=== PATIENT | female | born 1930 | race Caucasian/White ===

== ENCOUNTER 2017-08-14 07:30 | Emergency (ER) | payer MEDICARE, OTHER ==
[~2017-08-14] VITALS: Ht 170.2 cm; Wt 69.9 kg
[~2017-08-14 07:30] MED LIST: ALPR0.5T PO; CRESTOR10 MG PO; IBUP200C6 PO; LOSA100T6 PO; MELO7.5T29 PO; METO50TA29 PO; TRIA1TAB2 PO
--- NOTE | 2017-08-14 08:35 | RAD ---
Chest, 2 views, 08/14/2017: History: Cough Comparison is made to a study from 06/07/2014. There is a moderate thoracolumbar scoliosis with moderate multilevel degenerative change. The heart size and pulmonary vascularity are within normal limits. There is calcific plaquing of the aorta. The right hemidiaphragm is mildly elevated. There appears to be minimal basilar scarring. No acute infiltrate is seen. There is no evidence of pleural fluid. IMPRESSION: No acute cardiopulmonary abnormality is detected.
[2017-08-14 08:49] LABS: INFLUENZA A PATIENT NEGATIVE (NEGATIVE); INFLUENZA B PATIENT NEGATIVE (NEGATIVE)
[2017-08-14] MEDS ORDERED: GUAI1TBM10 PO (08:52)
[2017-08-14] MEDS ORDERED: NAPR500T PO (08:52)
--- NOTE | 2017-08-14 08:53 | PHYS DOC ---
Past History Past Medical History: Anxiety, Arthritis, High Cholesterol, Hypertension, Other Past Surgical History: Hysterectomy Alcohol Use: None Drug Use: None Adult General Chief Complaint Chief Complaint: FLU SYMPTOM HPI HPI Patient is a pleasant 86-year-old female who was exposed to URI-like symptoms earlier this week with family members as they came in to town. Since Sunday she' s begun having a nonproductive cough with runny nose and subjective fevers and myalgias. She is taking [id number] Tylenol and throat lozenges to help her symptoms but they have just progressively worsened. She denies any chest pain, shortness of breath, abdominal pain, headache, focal neurologic deficits. Fevers have not been measured. Sick contacts at home had similar symptoms. She is worried she has flu. Her immunizations are up-to-date she is on no medications despite the fact she has been treated for hypertension hyperlipidemia past. Review of Systems Review of Systems Constitutional: She has suffered from subjective fevers and chills but nothing measured. Eyes: Denies change in visual acuity, redness, or eye pain [] HENT: He said some clear nasal congestion without sore throat [] Respiratory: Patient has had a nonproductive cough without shortness of breath[] Cardiovascular: No additional information not addressed in HPI [] GI: Denies abdominal pain, nausea, vomiting, bloody stools or diarrhea [] : Denies dysuria or hematuria [] Musculoskeletal: Denies back pain or joint pain [] Integument: Denies rash or skin lesions [] Neurologic: Denies headache, focal weakness or sensory changes [] Endocrine: Denies polyuria or polydipsia [] All other systems were reviewed and found to be within normal limits, except as documented in this note. Allergies Allergies Allergies Coded Allergies Type Severity Reaction Last Updated Verified hydrocodone Allergy Intermediate Rash 06/07/14 Yes lisinopril Allergy Intermediate Rash 06/07/14 No Physical Exam Physical Exam Vital signs recorded on the chart patient be hypertensive without hypoxia tachypnea. Constitutional: Well developed, well nourished, no acute distress, non-toxic appearance. [] HENT: Normocephalic, atraumatic, bilateral external ears normal, oropharynx slightly dry mucous membranes, no oral exudates, nose normal only clear exudates from the nose.. Iams are clear bilaterally [] Eyes: PERRLA, EOMI, conjunctiva normal, no discharge. [] Neck: Normal range of motion, no tenderness, supple, no stridor or cervical lymphadenopathy. [] Cardiovascular:Heart rate regular rhythm, no murmur [] Lungs & Thorax: Bilateral breath sounds clear to auscultation [] Skin: Warm, dry, no erythema, no rash Neurologic: Alert and oriented X 3, normal motor function, normal sensory function, no focal deficits noted. [] Psychologic: Affect normal, judgement normal, mood normal. [] EKG EKG [] Radiology/Procedures Radiology/Procedures [] [address] [place] [id number] IMAGING REPORT Signed PATIENT: Miladis BLAKE ACCOUNT: [id number] : 1930 LOCATION: ER AGE: 86 SEX: F EXAM STATUS: REG ER ORD. PHYSICIAN: MARILYN FIGUEROA MD REASON: cough PROCEDURE: CHEST PA & LATERAL Chest, 2 views, 08/14/2017: History: Cough Comparison is made to a study from 06/07/2014. There is a moderate thoracolumbar scoliosis with moderate multilevel degenerative change. The heart size and pulmonary vascularity are within normal limits. There is calcific plaquing of the aorta. The right hemidiaphragm is mildly elevated. There appears to be minimal basilar scarring. No acute infiltrate is seen. There is no evidence of pleural fluid. IMPRESSION: No acute cardiopulmonary abnormality is detected. DICTATED AND SIGNED BY: GERARDO MARTINEZ MD DATE: 08/14/17829 CC: TAYLOR FRANKLIN MD; MARILYN FIGUEROA MD ~ Course & Med Decision Making Course & Med Decision Making Pertinent Labs and Imaging studies reviewed. (See chart for details) []She presents with what I believe to be URI-like symptoms. Two-view chest x- ray PA and lateral views reviewed and looked at by me read by me demonstrates no acute cardiopulmonary infection, cardiomegaly, pleural effusion, pulmonary edema, pneumonia, or pericardial effusion. Rapid influenza swab is negative patient is resting comfortably not hypoxic not tachypnea no estrogen stress. Dragon Disclaimer Dragon Disclaimer This electronic medical record was generated, in whole or in part, using a voice recognition dictation system. Departure Departure: Impression: Primary Impression: Upper respiratory infection Disposition: 01 HOME, SELF-CARE Condition: STABLE Referrals: TAYLOR FRANKLIN MD (PCP) Patient Instructions: Upper Respiratory Infection, Adult Additional Instructions: discharge: I've spoken with the patient and/or caregivers. I've explained the patient's condition, diagnosis and treatment plan based on information available to me at this time. I've answered the patient's and/or caregivers questions and addressed any concerns. The patient and/or caregivers have a good understanding the patient's diagnosis, condition and treatment plan as can be expected at this point. Vital signs have been stabilized. The patient's condition is stable for discharge from the emergency department. The patient will pursue further outpatient evaluation with her primary care provider or other designated consulting physician as outlined in the discharge instructions. Patient and/or caregivers are agreeable to this plan of care and follow-up instructions have been explained in detail. The patient and/or caregivers have received these instructions in written format and expressed understanding of these discharge instructions. The patient and her caregivers are aware that if any significant change in condition or worsening of symptoms should prompt him to immediately return to this of the closest emergency department. If an emergent department is not readily available I would encourage him to call 911. Scripts Naproxen (NAPROSYN) 500 Mg Tablet 1 TAB PO BID, #20 TAB 1 Refill Prov: MARILYN FIGUEROA MD 08/14/17 Guaifenesin/Dextromethorphan (MUCINEX DM ER 1,200-60 MG TAB) 1 Each Tbmp.12hr 1 TAB PO BID, #20 TAB 1 Refill Prov: MARILYN FIGUEROA MD 08/14/17 MARILYN FIGUEROA MD Aug 14, 2017 08:53
[2017-08-14 09:09] VITALS: BP 124/70
== END 2017-08-14 09:10 | disposition home or self-care (01) ==
LOC: ER 07:30
DX: J06.9 Acute upper respiratory infection, unspecified (principal); E78.00 Pure hypercholesterolemia, unspecified; I10 Essential (primary) hypertension; F41.9 Anxiety disorder, unspecified; M19.90 Unspecified osteoarthritis, unspecified site; Z88.6 Allergy status to analgesic agent; Z88.8 Allergy status to other drugs, medicaments and biological substances
CPT/HCPCS: 71020; 87804; 99285-25

== ENCOUNTER 2019-02-28 09:31 | Emergency (ER) | payer MEDICARE, OTHER ==
[~2019-02-28] VITALS: Ht 170.2 cm; Wt 64.4 kg
[~2019-02-28 09:31] MED LIST changes: +GUAI1TBM10 PO; +IBUP-1390 PO; -IBUP200C6 PO; +LOSA100T14 PO; -LOSA100T6 PO; +NAPR-683 PO
[2019-02-28 09:46] VITALS: BP 131/81
[2019-02-28] MEDS ORDERED: MECL25TA3 PO (10:01)
[2019-02-28] MEDS ORDERED: ONDA4TAB7 PO (10:01)
[2019-02-28] MEDS ORDERED: HYOS0.1264 PO (10:01)
--- NOTE | 2019-02-28 10:02 | PHYS DOC ---
Past History Past Medical History: Depression, Hypertension Past Surgical History: Appendectomy Smoking: Non-smoker Alcohol Use: None Drug Use: None Adult General Chief Complaint Chief Complaint: NAUSEA/VOMITING/DIARRHEA HPI HPI Patient is a 88-year-old female presents with nausea vomiting and diarrhea that started yesterday. Patient has been oral intake tolerant this morning. No chest pain or difficulty breathing. No diaphoresis. No blood in the stool or emesis. No recent travel. No sick contacts. No fever. No significant abdominal pain.[] Review of Systems Review of Systems Constitutional: Denies fever or chills [] Eyes: Denies change in visual acuity, redness, or eye pain [] HENT: Denies nasal congestion or sore throat [] Respiratory: Denies cough or shortness of breath [] Cardiovascular: No chest pain or palpitations[] GI: See history of present illness[] : Denies dysuria or hematuria [] Musculoskeletal: Denies back pain or joint pain [] Integument: Denies rash or skin lesions [] Neurologic: Denies headache, focal weakness or sensory changes, long-standing dizziness with change in position without any acute changes [] Endocrine: Denies polyuria or polydipsia [] All other systems were reviewed and found to be within normal limits, except as documented in this note. Allergies Allergies Allergies Coded Allergies Type Severity Reaction Last Updated Verified hydrocodone Allergy Intermediate Rash 06/07/14 Yes lisinopril Allergy Intermediate Rash 06/07/14 No Physical Exam Physical Exam Constitutional: Well developed, well nourished, no acute distress, non-toxic appearance. [] HENT: Normocephalic, atraumatic, bilateral external ears normal, oropharynx moist, no oral exudates, nose normal. [] Eyes: PERRLA, EOMI, conjunctiva normal, no discharge. [] Neck: Normal range of motion, no tenderness, supple, no stridor. [] Cardiovascular:Heart rate regular rhythm, no murmur [] Lungs & Thorax: Bilateral breath sounds clear to auscultation [] Abdomen: Bowel sounds normal, soft, no tenderness, no masses, no pulsatile masses. [] Skin: Warm, dry, no erythema, no rash. [] Back: No tenderness, no CVA tenderness. [] Extremities: No tenderness, no cyanosis, no clubbing, ROM intact, no edema. [] Neurologic: Alert and oriented X 3, normal motor function, normal sensory function, no focal deficits noted. [] Psychologic: Affect normal, judgement normal, mood normal. [] Current Patient Data Vital Signs Vital Signs Date Time Temp Pulse Resp B/P (MAP) Pulse Ox O2 Delivery O2 Flow Rate FiO2 02/28/19 09:46 97.8 70 18 97 Room Air EKG EKG [] Radiology/Procedures Radiology/Procedures [] Course & Med Decision Making Course & Med Decision Making Pertinent Labs and Imaging studies reviewed. (See chart for details) Medical decision making: Patient is oral intake tolerant without blood in her stool or emesis. Will treat with symptomatic supportive care. Discussed this with the patient extensively, diet recommendations, and reasons to return. Patient voiced understanding. All questions were answered. She was discharged in improved condition.[] Dragon Disclaimer Dragon Disclaimer This electronic medical record was generated, in whole or in part, using a voice recognition dictation system. Departure Departure: Impression: Primary Impression: Nausea vomiting and diarrhea Disposition: 01 HOME, SELF-CARE Condition: IMPROVED Referrals: TAYLOR FRANKLIN MD (PCP) Follow-up in 2 days Patient Instructions: Diet for Diarrhea, Adult, Dizziness, Nausea and Vomiting Additional Instructions: Drink plenty of fluids, frequent small sips. No fatty foods, no milk, and no pepper for the next 48 hours. For the next 48 hours eat a diet rich in carbohydrates with foods such as bananas, rice, applesauce, and toast. Follow-up with your regular doctor in 2 days. Return to the ER if unable to tolerate liquids, blood in the emesis or stool, or any other concerns. Scripts Ondansetron Hcl (ZOFRAN) 4 Mg Tablet 1 TAB PO Q6HRS for nausea or vomiting, #20 TAB Prov: ARIK BENJAMIN DO 02/28/19 Meclizine Hcl (MECLIZINE HCL) 25 Mg Tablet 1 TAB PO PRN TID for vertigo, #30 TAB Prov: ARIK BENJAMIN DO 02/28/19 Hyoscyamine Sulfate (LEVSIN) 0.125 Mg Tablet 0.125 MG PO QID for abdominal pain/cramping, #30 TAB Prov: ARIK BENJAMIN DO 02/28/19 ARIK BENJAMIN DO Feb 28, 2019 10:02
[2019-03-01] MEDS ORDERED: SERT50TA PO (13:08)
[2019-03-01] MEDS ORDERED: HYDR12.58 PO (13:08)
== END 2019-02-28 10:09 | disposition home or self-care (01) ==
LOC: ER 09:31
DX: R11.2 Nausea with vomiting, unspecified (principal); R19.7 Diarrhea, unspecified; R42 Dizziness and giddiness; F32.9 Major depressive disorder, single episode, unspecified; I10 Essential (primary) hypertension; Z88.5 Allergy status to narcotic agent; Z88.8 Allergy status to other drugs, medicaments and biological substances
CPT/HCPCS: 99283

== ENCOUNTER 2019-03-01 09:04 | Inpatient (IN) | payer MEDICARE, OTHER ==
[~2019-03-01] VITALS: Ht 167.6 cm; Wt 64.9 kg
[~2019-03-01 09:04] MED LIST changes: +HYOS0.1264 PO; +MECL25TA3 PO; +ONDA4TAB7 PO
--- NOTE | 2019-03-01 09:27 | PHYS DOC ---
Past History Past Medical History: Depression, Hypertension Past Surgical History: Appendectomy Smoking: Non-smoker Alcohol Use: None Drug Use: None Adult General Chief Complaint Chief Complaint: NAUSEA/VOMITING/DIARRHEA HPI HPI Patient is a 88-year-old female presents complaining with nausea vomiting and diarrhea that started several days ago. She was seen in the emergency department, started on antibiotics, these do did not relieve her nausea. She denies any blood in the stool or emesis. She reports 2 stools today. No recent travel, no trauma, mild abdominal pain that is relieved by the emesis as well as diarrheal stools. It is crampy in nature, mild in intensity. Patient reports fee ling lightheaded, dizzy, and shaky. She denies any chest pain or palpitations. She denies any discomfort with exertion. Past surgical history is significant for an appendectomy.[] Review of Systems Review of Systems Constitutional: Denies fever or chills [] Eyes: Denies change in visual acuity, redness, or eye pain [] HENT: Denies nasal congestion or sore throat [] Respiratory: Denies cough or shortness of breath [] Cardiovascular: No chest pain or palpitations[] GI: See history of present illness[] : Denies dysuria or hematuria [] Musculoskeletal: Denies back pain or joint pain [] Integument: Denies rash or skin lesions [] Neurologic: Denies headache, focal weakness or sensory changes [] Endocrine: Denies polyuria or polydipsia [] All other systems were reviewed and found to be within normal limits, except as documented in this note. Allergies Allergies Allergies Coded Allergies Type Severity Reaction Last Updated Verified hydrocodone Allergy Intermediate Rash 06/07/14 Yes lisinopril Allergy Intermediate Rash 06/07/14 No Physical Exam Physical Exam Constitutional: Well developed, well nourished, no acute distress, non-toxic a ppearance. [] HENT: Normocephalic, atraumatic, bilateral external ears normal, oropharynx moist, no oral exudates, nose normal. [] Eyes: PERRLA, EOMI, conjunctiva normal, no discharge. [] Neck: Normal range of motion, no tenderness, supple, no stridor. [] Cardiovascular:Heart rate regular rhythm, no murmur [] Lungs & Thorax: Bilateral breath sounds clear to auscultation [] Abdomen: Bowel sounds normal, soft, no tenderness, able to sit up and lay back with any difficulty, no rebound, no guarding, no rigidity, no masses, no pulsatile masses. [] Skin: Warm, dry, no erythema, no rash. [] Back: No tenderness, no CVA tenderness. [] Extremities: No tenderness, no cyanosis, no clubbing, ROM intact, no edema. [] Neurologic: Alert and oriented X 3, normal motor function, normal sensory function, no focal deficits noted. [] Psychologic: Affect normal, judgement normal, mood normal. [] EKG EKG EKG shows a sinus rhythm at 59 bpm, left axis at -24, QTC of 430 ms, incomplete right bundle-branch block, no ST elevations. Interpreted by me at 0932[] Radiology/Procedures Radiology/Procedures EXAM: CT ABDOMEN/PELVIS WITHOUT CONTRAST. HISTORY: Nausea, vomiting, diarrhea. TECHNIQUE: Computed tomography of the abdomen and pelvis was performed without intravenous contrast. COMPARISON: 02/23/2015. FINDINGS: Lung windows through the visualized portions of the bases reveal mild atelectasis. There are dense calcifications of the aortic valve. The ascending aorta is ectatic at 4.6 cm. Coronary atherosclerotic calcifications are also noted. Bone windows reveal no suspicious lesions. The liver, spleen, adrenal glands and gallbladder are unremarkable. The pancreas is atrophic without focal lesions or ductal dilatation. The common duct is not dilated. There is a 3 mm calculus in the left renal interpolar region. No suspicious renal lesions are seen without contrast. There is no hydronephrosis or ureteral calculus. The uterus is surgically absent. Contrast has traversed the small bowel and colon without evidence of small bowel obstruction. The appendix is surgically absent. Mild wall thickening of the sigmoid colon may reflect luminal decompression or mild colitis. Sigmoid diverticulosis is moderate. IMPRESSION: 1. Findings suggesting diarrhea. Mild wall thickening of the sigmoid colon may reflect mild colitis or only luminal decompression. 2. Aortic valve calcifications. Correlate for aortic stenosis. 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 Ongoing follow-up is recommended. 3. 3 mm left renal calculus.[] Course & Med Decision Making Course & Med Decision Making Pertinent Labs and Imaging studies reviewed. (See chart for details) ED course: Patient arrived, was placed in bed, and tolerated exam well. She was able to tolerate oral contrast for CT. At the time of this dictation CT interpretation is still pending. It was noted that her sodium level had decreased from yesterday, she was given IV fluids. She reports being able to tolerate "plain water" and not electrolyte supplements nor any food. Consultation was made with the hospitalist service for admission. She was admitted in improved condition. Findings were discussed with patient and family who voiced understanding. All questions were answered. Medical decision making: Patient appears to be failing outpatient management with oral antibiotics. She is hyponatremic when compared to yesterday however her renal function has improved to normal levels. Due to this hyponatremia along with failing outpatient management, consultation was made with the hospitalist service for admission. There is no evidence of an acute coronary syndrome. Stool cultures are pending. On exam there was no indication of a surgical pathology however given her age CT scan was obtained which is still pending.[] Dragon Disclaimer Dragon Disclaimer This electronic medical record was generated, in whole or in part, using a voice recognition dictation system. Departure Departure: Impression: Primary Impression: Nausea, vomiting, and diarrhea Additional Impressions: Hyponatremia Failure of outpatient treatment Disposition: ADMITTED INPATIENT Admitting Physician: Kashif Greco Condition: IMPROVED Referrals: UGO ESQUIVEL (PCP) Problem Qualifiers ARIK BENJAMIN DO Mar 01, 2019 09:27
[2019-03-01] MEDS ORDERED: METOCLOPRAMIDE HCL 10 MG/2 ML VIAL. IM ONE (09:30)
[2019-03-01] MEDS ORDERED: IOHEXOL 240 MG/ML 50ML VIAL. ONE (09:30)
[2019-03-01] MEDS ORDERED: HYOSCYAMINE 0.125 MG TAB.RAPDIS PO ONE (09:30)
[2019-03-01] MEDS ORDERED: IV NORMAL SALINE 500ML 500 ML IV ONE (09:30)
[2019-03-01] MEDS ORDERED: IOHEXOL 240 MG/ML 50ML VIAL. PO ONE (10:00)
[2019-03-01 10:24] LABS: ALBUMIN 3.9 g/dL (3.4-5.0); ALBUMIN/GLOBULIN RATIO 1.4 (1.0-1.7); CALCIUM 8.8 mg/dL (8.5-10.1); CREATININE 0.9 mg/dL (0.6-1.0); POTASSIUM 3.7 mmol/L (3.5-5.1); TOTAL BILIRUBIN 1.3 mg/dL (0.2-1.0); TOTAL PROTEIN 6.6 g/dL (6.4-8.2)
[2019-03-01 10:40] LABS: BASO % 0 % (0-3); EOS % 0 % (0-3); HEMATOCRIT 41.1 % (36.0-47.0); HEMOGLOBIN 14.2 g/dL (12.0-15.5); LYMPH # 2.1 x10^3/uL (1.0-4.8); LYMPH % 19 % (24-48); MEAN CORPUSCULAR HEMOGLOBIN 31 pg (25-35); MEAN CORPUSCULAR HGB CONC 35 g/dL (31-37); MEAN CORPUSCULAR VOLUME 89 fL (79-100); MONO % 9 % (0-9); NEUT # 7.8 x10^3uL (1.8-7.7); NEUT % 71 % (31-73); PLATELET COUNT 271 x10^3/uL (140-400); RED BLOOD COUNT 4.64 x10^6/uL (3.50-5.40); RED CELL DISTRIBUTION WIDTH 15.3 % (11.5-14.5); WHITE BLOOD COUNT 11.1 x10^3/uL (4.0-11.0)
--- NOTE | 2019-03-01 10:41 | EKG ---
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
[2019-03-01] MEDS ORDERED: IV NORMAL SALINE 1,000ML 1,000 ML IV SCH (11:32)
[2019-03-01] MEDS ORDERED: ACETAMINOPHEN 325 MG TABLET PO ONE (11:35)
[2019-03-01 11:45] LABS: % ATYL 1 % (0-0); % BANDS 1 % (0-9); % LYMPHS 13 % (24-48); % MONOS 3 % (0-10); % SEGS 82 % (35-66)
[2019-03-01] MEDS ORDERED: ONDANSETRON PF 4 MG/2 ML VIAL. IV PRN (11:45)
[2019-03-01] MEDS ORDERED: ACETAMINOPHEN 325 MG TABLET PO PRN (11:45)
[2019-03-01 11:46] LABS: PLT ESTIMATE ADEQUATE (ADEQUATE)
--- NOTE | 2019-03-01 11:59 | RAD ---
EXAM: CT ABDOMEN/PELVIS WITHOUT CONTRAST. HISTORY: Nausea, vomiting, diarrhea. TECHNIQUE: Computed tomography of the abdomen and pelvis was performed without intravenous contrast. COMPARISON: 02/23/2015. FINDINGS: Lung windows through the visualized portions of the bases reveal mild atelectasis. There are dense calcifications of the aortic valve. The ascending aorta is ectatic at 4.6 cm. Coronary atherosclerotic calcifications are also noted. Bone windows reveal no suspicious lesions. The liver, spleen, adrenal glands and gallbladder are unremarkable. The pancreas is atrophic without focal lesions or ductal dilatation. The common duct is not dilated. There is a 3 mm calculus in the left renal interpolar region. No suspicious renal lesions are seen without contrast. There is no hydronephrosis or ureteral calculus. The uterus is surgically absent. Contrast has traversed the small bowel and colon without evidence of small bowel obstruction. The appendix is surgically absent. Mild wall thickening of the sigmoid colon may reflect luminal decompression or mild colitis. Sigmoid diverticulosis is moderate. IMPRESSION: 1. Findings suggesting diarrhea. Mild wall thickening of the sigmoid colon may reflect mild colitis or only luminal decompression. 2. Aortic valve calcifications. Correlate for aortic stenosis. 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 Ongoing follow-up is recommended. 3. 3 mm left renal calculus. *One or more of the following individualized dose reduction techniques were utilized for this examination: 1. Automated exposure control. 2. Adjustment of the mA and/or kV according to patient size. 3. Use of iterative reconstruction technique. Electronically signed by: Candido Marin MD (03/01/2019 11:56 AM) [facility]
[2019-03-01 12:41] VITALS: BP 162/70
[2019-03-01] MEDS ORDERED: HYDR12.58 PO (13:08)
[2019-03-01] MEDS ORDERED: SERT50TA PO (13:08)
[2019-03-01] MEDS ORDERED: POTASSIUM CL 20MEQ IN 0.9%NACL 1,000 ML IV SCH (13:30)
[2019-03-01] MEDS: POTASSIUM CL 20MEQ IN 0.9%NACL 1,000 ML IV SCH ×2 (13:30→21:15)
[2019-03-01 15:01] VITALS: BP 164/77
--- NOTE | 2019-03-01 15:41 | HP ---
ADMIT DATE: 03/01/2019 ADMISSION HISTORY AND PHYSICAL CHIEF COMPLAINT: Diarrhea and weakness. HISTORY OF PRESENT ILLNESS: The patient is very alert, active 88-year-old female, admitted through the Emergency Department with 2-day history of nausea, vomiting, and diarrhea. The vomiting has somewhat subsided. She was seen in the Emergency Department on Sunday the , started on some antibiotics and antiemetics. She had 2 loose stools today. No recent travel. She is still clinically quite weak and dehydrated. She was admitted then for further treatment and evaluation. There are no signs of obstruction. Her only previous surgical history of the abdomen is an appendectomy. PAST MEDICAL/SURGICAL HISTORY: Significant for depression, essential hypertension, previous appendectomy. SOCIAL HISTORY: She is a nonsmoker and nondrinker. ALLERGIES: SHE HAS ALLERGIES TO HYDROCODONE AND LISINOPRIL CAUSING RASHES. HOME MEDICATIONS REVIEW: She was taking Xanax along with recently started Zoloft and ____. FAMILY HISTORY: The patient is recently . Her significant other of many years just 4 months ago. She has had 5 children by her first marriage. Two of her sons have since preceded her in , one son of alcohol-related cirrhosis, the other by his own hand as a result of suicide. REVIEW OF SYSTEMS: Indicates that the symptoms are localized to just this week. She denied any recent travel. She denied any chest pain, palpitation, bloody stools, or hematemesis. All other systems reviewed and determined to be negative. PHYSICAL EXAMINATION: GENERAL: When I saw her, this is an alert female who was appropriate. VITAL SIGNS: Her initial blood pressure in the Emergency Department was 160/70, pulse was 64 and regular, and she was afebrile. HEENT: Head is without trauma. The pupils are reactive. Sclerae are anicteric. The oropharynx is clear. NECK: Supple. No bruits identified. LUNGS: Otherwise clear. CARDIOVASCULAR: Showed regular heart tones. No obvious gallops. Peripheral pulses are palpable and full. ABDOMEN: Soft, scaphoid; minimal guarding, no rebound tenderness. Bowel sounds are hypoactive. EXTREMITIES: Show no cyanosis or edema. NEUROLOGIC: Focally intact. Speech is fluent. No focal deficits. PERTINENT LABORATORY STUDIES: Her hemoglobin is 14.2 g/dL with a white count of 11,100. Her nonfasting blood sugar is 103. Electrolytes are within normal range. Laboratory studies were reviewed. She had a CT abdomen and pelvis. There is mild thickening of the sigmoid colon reflecting mild colitis, no evidence of masses or lesions. She had aortic valve calcification, ascending aortic ectasia. She also had a 3.3-mm left renal calculus, which is now asymptomatic. IMPRESSION: 1. This 88-year-old female has most likely a self-limiting gastroenteritis. 2. Dehydration, aggravated by hydrochlorothiazide. 3. Essential hypertension. 4. 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 PLAN: 1. Admit to the Inpatient Unit. 2. Clear liquid diet. 3. Gentle intravenous hydration. 4. Serial chemistries. 5. Continue Xanax and Zoloft. 6. We will advance her diet as tolerated. JHONY MOURA MD DR: BRITTANY/arianna JOB#: [id number] / [id number] ayaka Kruger Dr.
[2019-03-01 19:24] VITALS: BP 126/75
[2019-03-01] MEDS: ALPRAZolam 0.5 MG TABLET PO SCH (20:54)
[2019-03-01 23:45] VITALS: BP 131/76
[2019-03-02 05:36] VITALS: BP 155/86
[2019-03-02 06:24] LABS: BASO % 0 % (0-3); EOS # 0.1 x10^3/uL (0.0-0.7); EOS % 0 % (0-3); HEMATOCRIT 41.6 % (36.0-47.0); HEMOGLOBIN 14.6 g/dL (12.0-15.5); LYMPH # 2.4 x10^3/uL (1.0-4.8); LYMPH % 18 % (24-48); MEAN CORPUSCULAR HEMOGLOBIN 31 pg (25-35); MEAN CORPUSCULAR HGB CONC 35 g/dL (31-37); MEAN CORPUSCULAR VOLUME 88 fL (79-100); MONO # 1.4 x10^3/uL (0.0-1.1); MONO % 10 % (0-9); NEUT % 72 % (31-73); PLATELET COUNT 281 x10^3/uL (140-400); RED BLOOD COUNT 4.72 x10^6/uL (3.50-5.40); RED CELL DISTRIBUTION WIDTH 15.2 % (11.5-14.5); WHITE BLOOD COUNT 13.9 x10^3/uL (4.0-11.0)
[2019-03-02 06:26] LABS: CALCIUM 8.5 mg/dL (8.5-10.1); CREATININE 0.8 mg/dL (0.6-1.0); GFR 67.5; POTASSIUM 4.6 mmol/L (3.5-5.1)
--- NOTE | 2019-03-02 08:29 | PDOC ---
SUBJECTIVE: CC: Weakness and Diarrhea Diarrhea has subsided Says she is hungry, yet she has no appetite. OBJECTIVE: Problems: Problems Medical Problems: (1) Failure of outpatient treatment Status: Acute (2) Hyponatremia Status: Acute (3) Nausea, vomiting, and diarrhea Status: Acute Vital Signs/I&O: Vital Signs Date Time Temp Pulse Resp B/P (MAP) Pulse Ox O2 Delivery O2 Flow Rate FiO2 03/02/19 05:36 98.0 89 20 155/86 (109) 94 Room Air 03/01/19 12:41 96.0 I & O 03/01/19 03/01/19 03/02/19 14:59 22:59 06:59 Intake Total 500 ml 2299 ml Balance 500 ml 2299 ml Labs: Laboratory Tests Test 03/01/19 09:40 03/02/19 06:08 White Blood Count 11.1 x10^3/uL (4.0-11.0) H 13.9 x10^3/uL (4.0-11.0) H Red Blood Count 4.64 x10^6/uL (3.50-5.40) 4.72 x10^6/uL (3.50-5.40) Hemoglobin 14.2 g/dL (12.0-15.5) 14.6 g/dL (12.0-15.5) Hematocrit 41.1 % (36.0-47.0) 41.6 % (36.0-47.0) Mean Corpuscular Volume 89 fL (79-100) 88 fL (79-100) Mean Corpuscular Hemoglobin 31 pg (25-35) 31 pg (25-35) Mean Corpuscular Hemoglobin Concent 35 g/dL (31-37) 35 g/dL (31-37) Red Cell Distribution Width 15.3 % (11.5-14.5) H 15.2 % (11.5-14.5) H Platelet Count 271 x10^3/uL (140-400) 281 x10^3/uL (140-400) Neutrophils (%) (Auto) 71 % (31-73) 72 % (31-73) Lymphocytes (%) (Auto) 19 % (24-48) L 18 % (24-48) L Monocytes (%) (Auto) 9 % (0-9) 10 % (0-9) H Eosinophils (%) (Auto) 0 % (0-3) 0 % (0-3) Basophils (%) (Auto) 0 % (0-3) 0 % (0-3) Neutrophils # (Auto) 7.8 x10^3uL (1.8-7.7) H 10.0 x10^3uL (1.8-7.7) H Lymphocytes # (Auto) 2.1 x10^3/uL (1.0-4.8) 2.4 x10^3/uL (1.0-4.8) Monocytes # (Auto) 1.0 x10^3/uL (0.0-1.1) 1.4 x10^3/uL (0.0-1.1) H Eosinophils # (Auto) 0.0 x10^3/uL (0.0-0.7) 0.1 x10^3/uL (0.0-0.7) Basophils # (Auto) 0.0 x10^3/uL (0.0-0.2) 0.0 x10^3/uL (0.0-0.2) Segmented Neutrophils % 82 % (35-66) H Band Neutrophils % 1 % (0-9) Lymphocytes % 13 % (24-48) L Atypical Lymphocytes % (Manual) 1 % (0-0) H Monocytes % 3 % (0-10) Platelet Estimate Adequate (ADEQUATE) Prothrombin Time 10.4 SEC (9.4-11.4) Prothrombin Time INR 1.0 (0.9-1.1) PTT 23 SEC (23-33) Sodium Level 127 mmol/L (136-145) L 121 mmol/L (136-145) L Potassium Level 3.7 mmol/L (3.5-5.1) 4.6 mmol/L (3.5-5.1) Chloride Level 91 mmol/L (98-107) L 87 mmol/L (98-107) L Carbon Dioxide Level 26 mmol/L (21-32) 26 mmol/L (21-32) Anion Gap 10 (6-14) 8 (6-14) Blood Urea Nitrogen 20 mg/dL (7-20) 10 mg/dL (7-20) Creatinine 0.9 mg/dL (0.6-1.0) 0.8 mg/dL (0.6-1.0) Estimated GFR (Cockcroft-Gault) 59.0 67.5 BUN/Creatinine Ratio 22 (6-20) H Glucose Level 103 mg/dL (70-99) H 84 mg/dL (70-99) Calcium Level 8.8 mg/dL (8.5-10.1) 8.5 mg/dL (8.5-10.1) Total Bilirubin 1.3 mg/dL (0.2-1.0) H Aspartate Amino Transferase (AST) 11 U/L (15-37) L Alanine Aminotransferase (ALT) 30 U/L (14-59) Alkaline Phosphatase 52 U/L (46-116) Troponin I Quantitative < 0.017 ng/mL (0-0.055) [id number]-Rhq-[id number]-Type Natriuretic Peptide 733 pg/mL (0-449) H Total Protein 6.6 g/dL (6.4-8.2) Albumin 3.9 g/dL (3.4-5.0) Albumin/Globulin Ratio 1.4 (1.0-1.7) Lipase 114 U/L (73-393) Physical Exam: HEENT: PERRLA, mucous membranes are moist Neck: supple Lungs: Clear to auscultation CV: RRR, no gallops nor murmurs. Abdomen: Soft, nontender to palpation. Normoactive bowel sounds Ext: No edema Neurologic: Focally intact, no deficits. Speech fluent. I notice some subtle cognitive deficits. Skin: warm and dry. ASSESSMENT: Self limiting Gastroenteritis, resolving Dehydration, rehydrated Depression with Anxiety Essential Hypertension PLAN: Advance diet to regular DC IV fluids Increase activity BP meds on hold Tentative DC home in AM JHONY MOURA MD Mar 02, 2019 08:29
[2019-03-02] MEDS: ALPRAZolam 0.5 MG TABLET PO SCH ×2 (08:30→20:16)
[2019-03-02] MEDS: ONDANSETRON PF 4 MG/2 ML VIAL. IV PRN (08:34)
[2019-03-02] MEDS ORDERED: SERTRALINE 50 MG TABLET. PO SCH (09:00)
[2019-03-02 10:52] VITALS: BP 127/73
[2019-03-02 15:45] VITALS: BP 137/80
[2019-03-02 18:34] VITALS: BP 105/52
[2019-03-03 05:30] VITALS: BP 139/69
[2019-03-03] MEDS: IV NORMAL SALINE 1,000ML 1,000 ML IV SCH ×3 (08:05→22:38)
[2019-03-03] MEDS: ONDANSETRON PF 4 MG/2 ML VIAL. IV PRN (08:06)
[2019-03-03] MEDS: ALPRAZolam 0.5 MG TABLET PO SCH ×2 (08:13→21:04)
[2019-03-03 11:00] VITALS: BP 134/84
[2019-03-03 12:34] LABS: BASO % 0 % (0-3); EOS # 0.1 x10^3/uL (0.0-0.7); EOS % 1 % (0-3); HEMATOCRIT 40.7 % (36.0-47.0); HEMOGLOBIN 14.2 g/dL (12.0-15.5); LYMPH # 1.7 x10^3/uL (1.0-4.8); LYMPH % 14 % (24-48); MEAN CORPUSCULAR HEMOGLOBIN 31 pg (25-35); MEAN CORPUSCULAR HGB CONC 35 g/dL (31-37); MEAN CORPUSCULAR VOLUME 89 fL (79-100); MONO # 1.2 x10^3/uL (0.0-1.1); MONO % 10 % (0-9); NEUT % 75 % (31-73); PLATELET COUNT 269 x10^3/uL (140-400); RED BLOOD COUNT 4.59 x10^6/uL (3.50-5.40); RED CELL DISTRIBUTION WIDTH 15.1 % (11.5-14.5)
[2019-03-03 12:42] LABS: CALCIUM 8.5 mg/dL (8.5-10.1); CREATININE 0.7 mg/dL (0.6-1.0); GFR 78.8
[2019-03-03 12:45] LABS: POTASSIUM 5.1 mmol/L (3.5-5.1)
[2019-03-03] MEDS ORDERED: HYOSCYAMINE 0.125 MG TAB.RAPDIS PO SCH (13:00)
[2019-03-03] MEDS ORDERED: ONDANSETRON ODT 4 MG TAB.RAPDIS PO SCH ×2 (13:00)
[2019-03-03] MEDS ORDERED: MECLIZINE 12.5 MG TABLET. PO PRN (13:00)
[2019-03-03] MEDS ORDERED: ALPRAZolam 0.5 MG TABLET PO PRN (13:00)
[2019-03-03 13:54] LABS: BACTERIA,URINE MANY /HPF (0-FEW); BILIRUBIN,URINE NEG (NEG); CLARITY,URINE HAZY; COLOR,URINE STRAW; GLUCOSE,URINE NEG (NEG); NITRITE,URINE POS (NEG); RBC,URINE 0 /HPF (0-2); SQUAMOUS EPITHELIAL CELL,UR OCC /LPF; UROBILINOGEN,URINE 0.2 mg/dL (0.2 mg/dL)
[2019-03-03] MEDS ORDERED: ONDANSETRON ODT 4 MG TAB.RAPDIS PO PRN (14:00)
[2019-03-03 15:01] VITALS: BP 104/56
[2019-03-03] MEDS ORDERED: ACETAMINOPHEN 325 MG TABLET PO PRN (16:00)
[2019-03-03 19:16] VITALS: BP 93/53
[2019-03-03 23:09] VITALS: BP 124/72
--- NOTE | 2019-03-04 04:19 | PN ---
DATE: SUBJECTIVE: The patient is an 88-year-old female patient who was admitted with recurrent bouts of nausea, vomiting as well as diarrhea which started last Sunday. She apparently was admitted on Sunday morning. She continued to have nausea, vomiting as well as diarrhea, and her lab work on admission showed a sodium of 127, potassium 3.7, chloride 91, bicarbonate 26, anion gap of 10, BUN 20, creatinine was 0.9. Her CT scan of the abdomen showing findings suggesting diarrhea and mild wall thickening of the sigmoid colon, may reflect mild colitis only luminal decompression, aortic valve calcification. She was basically admitted and continued on IV fluid, antiemetic, and her Xanax. Unfortunately, her sodium went down further. In fact yesterday morning, it was 120 mEq per liter. Apparently, she was not on any IV fluid. We stopped her sertraline and started her on normal saline at 150 mL per hour. When I examined her this afternoon, she was sitting on the edge of the bed, eating her lunch comfortably, in no apparent distress. She denied any further episodes of nausea or vomiting. Denied any diarrhea. Denied any abdominal pain. Denied any dizziness, lightheadedness, or vertigo. PHYSICAL EXAMINATION: GENERAL: On examining her, she looked well and was clearly in no apparent respiratory distress. No pallor, jaundice, cyanosis, or thyromegaly. No jugular venous distension. No lower limb edema. VITAL SIGNS: Her heart rate was 77, blood pressure 139/69, temperature was 97.9, respiratory rate was 16, and oxygen saturation was 94%. HEAD, EYES, EARS, NOSE AND THROAT: Showed normocephalic, atraumatic. NECK: Supple. HEART: Showed normal first and second heart sounds. No gallop, rub or murmur. CHEST: Clear to auscultation. No crepitation or rhonchi. ABDOMEN: Distended, soft, nontender. NEUROLOGIC: She was awake, alert, responding appropriately. All cranial nerves intact. She moves extremities without difficulty. Her intake was 2799, no output was recorded. LABORATORY DATA: Her lab work this morning showed her white cell count was 12,000, hemoglobin 14, hematocrit 40, MCV 89 and platelet count of 169,000. Her chemistry still pending at the time of this dictation. As of yesterday, her serum sodium was 121, potassium is 4.6, chloride 87, bicarbonate 26, anion gap of 8, BUN 10, creatinine 0.8, estimated GFR was 67 mL per minute. Her glucose was 84 and calcium was 8.5. ASSESSMENT: Nausea, vomiting, and diarrhea, probably acute gastroenteritis. PLAN: My plan is to reconcile her medication. Hold her hydrochlorothiazide and sertraline as possible cause of inappropriate antidiuretic hormone release aggravated by the nausea and vomiting and diarrhea. I will send stool for culture and sensitivity. We will start her on IV antibiotic, IV fluid, and decide the further management accordingly. L[facility] MD DR: MICHELLE/arianna JOB#: [id number] / [id number]
[2019-03-04] MEDS: IV NORMAL SALINE 1,000ML 1,000 ML IV SCH ×2 (05:55→13:47)
[2019-03-04 06:17] VITALS: BP 114/70
[2019-03-04 08:18] LABS: ALBUMIN 2.9 g/dL (3.4-5.0); CALCIUM 8.2 mg/dL (8.5-10.1); CREATININE 0.7 mg/dL (0.6-1.0); GFR 78.8; TOTAL BILIRUBIN 0.5 mg/dL (0.2-1.0); TOTAL PROTEIN 5.7 g/dL (6.4-8.2)
[2019-03-04] MEDS: ALPRAZolam 0.5 MG TABLET PO SCH (08:22)
[2019-03-04 08:36] LABS: POTASSIUM 4.6 mmol/L (3.5-5.1)
[2019-03-04] MEDS ORDERED: METOPROLOL SUCC 24HR ER 50 MG TAB.ER.24H. PO SCH (09:00)
[2019-03-04] MEDS ORDERED: LACTOBACILLUS RHAMNOSUS GG 1 CAPSULE. PO SCH (09:00)
[2019-03-04 09:14] LABS: HEMATOCRIT 38.4 % (36.0-47.0); HEMOGLOBIN 13.2 g/dL (12.0-15.5); RED BLOOD COUNT 4.27 x10^6/uL (3.50-5.40); RED CELL DISTRIBUTION WIDTH 15.6 % (11.5-14.5); WHITE BLOOD COUNT 10.5 x10^3/uL (4.0-11.0)
[2019-03-04 10:21] VITALS: BP 127/72
--- NOTE | 2019-03-04 15:12 | DS ---
DATE OF DISCHARGE: The patient is an 88-year-old female patient who was admitted originally on 03/01 with recurrent bouts of nausea, vomiting as well as diarrhea. We did start her on IV fluid. I reviewed her medication and was found that she was on hydrochlorothiazide as well as sertraline that can be a possible cause of inappropriate antidiuretic hormone. The patient did very well. She has had no more nausea or vomiting or diarrhea. We did start her on normal saline and her serum sodium has steadily risen from as low as 121 today to 136 mEq/L. She is generally feeling much better, has been up and about walking with physical therapy and she remained stable and her stool for culture was negative for salmonella, Shigella or Campylobacter and Shiga toxins were negative. Her stool for C. diff was negative. A decision was made to discharge her home with home health with a plan to discontinue her hydrochlorothiazide. PHYSICAL EXAMINATION: GENERAL: When I saw her today, she looked well and was clearly in no apparent respiratory distress. No pallor, jaundice, cyanosis, or thyromegaly. No jugular venous distension. No limb edema. VITAL SIGNS: Her heart rate was 48, blood pressure was 127/72, temperature was 98, respiratory rate was 16, and oxygen saturation was 97% on 2 liters of oxygen by nasal cannula. HEAD, EYES, EARS, NOSE AND THROAT: Normocephalic, atraumatic. NECK: Supple. HEART: Showed normal first and second heart sounds with no gallop, rub or murmur. CHEST: Clear to auscultation. No crepitation or rhonchi. ABDOMEN: Distended, soft, nontender. NEUROLOGICAL: She is awake, alert, responding appropriately. All cranial nerves intact. She moves extremities without difficulty. She ambulates with a walker. Her intake over the last 24 hours was 970, no output was recorded. LABORATORY DATA: Her lab work this morning showed a white cell count of 10,500; hemoglobin 13; hematocrit 38; MCV 90 and platelet count 256,000. Her chemistry showed a serum sodium 136, potassium 4.6, chloride 104, bicarbonate 27, anion gap of 5, BUN 9, creatinine 0.7, estimated GFR was 78 mL per minute. Her glucose was 102. Calcium was 8.2. Total bilirubin, AST, ALT, alkaline phosphatase were normal. Total protein was 5.7, albumin was 2.9. Her prothrombin time was 10.4, INR of 1, aPTT was 23. Urinalysis was unremarkable. DISCHARGE MEDICATIONS: She will be discharged home to continue on alprazolam 0.5 mg once a day, hyoscyamine sulfate 0.125 mg 4 times a day, meclizine 25 mg 3 times a day as needed, metoprolol succinate 50 mg once a day, ondansetron for Zofran 4 mg every 6 hours and sertraline for Zoloft 50 mg daily. FINAL DISCHARGE DIAGNOSES: Acute gastroenteritis, resolved; hyponatremia, resolved; depression and panic attack for which she continues on sertraline. I would discontinue her hydrochlorothiazide. LANE [facility]WIS MD DR: MICHELLE/arianna JOB#: [id number] / [id number]
== END 2019-03-04 14:58 | disposition home health service (06) | DRG 392 ==
LOC: ER 09:04 → 1 SOUTH 11:39
PROVIDERS: ADMIT Hospitalist; ATTEND Hospitalist
DX: K52.9 Noninfective gastroenteritis and colitis, unspecified (principal); E87.1 Hypo-osmolality and hyponatremia; E86.0 Dehydration; F41.0 Panic disorder [episodic paroxysmal anxiety]; F41.8 Other specified anxiety disorders; I10 Essential (primary) hypertension; N20.0 Calculus of kidney; Z90.49 Acquired absence of other specified parts of digestive tract; Z88.8 Allergy status to other drugs, medicaments and biological substances
CPT/HCPCS: 36415; 74176; 80048; 80053; 81001; 82533; 83690; 83880; 84300; 84443; 84484; 85007; 85025; 85027; 85610; 85730; 87045; 87086; 87493; 93005; 96360; 96361; 96372; J0696; J2405; J2765; J3490; J7040; Q9966; 97110; 97530; 97535; 99285-25; J7030